=== PATIENT | female | born 1970 | race African-American/Black ===

== ENCOUNTER 2018-04-29 14:10 | Emergency (ER) | payer SELFPAY ==
[~2018-04-29] VITALS: Ht 177.8 cm; Wt 114.0 kg
[2018-04-29] MEDS ORDERED: IBUPROFEN 600MG TABLET PO ONE (14:30)
[2018-04-29 16:43] VITALS: BP 119/81
== END 2018-04-29 17:14 | disposition home or self-care (01) ==
LOC: ER 14:10
DX: M25.511 Pain in right shoulder (principal); M25.521 Pain in right elbow; R07.81 Pleurodynia; V49.9XXA Car occupant (driver) (passenger) injured in unspecified traffic accident, initial encounter; Y93.9 Activity, unspecified; Y92.9 Unspecified place or not applicable
CPT/HCPCS: 71101; 73030; 73080; 81025; 99284

== ENCOUNTER 2021-10-07 14:46 | Emergency (ER) | payer MEDICAID ==
[~2021-10-07] VITALS: Ht 177.8 cm; Wt 95.0 kg
[2021-10-07 14:53] VITALS: BP 137/89
[2021-10-07] MEDS ORDERED: NAPR-1176 MT (16:57)
== END 2021-10-07 17:19 | disposition home or self-care (01) ==
LOC: ER 14:46
DX: M25.512 Pain in left shoulder (principal); R20.0 Anesthesia of skin; I49.9 Cardiac arrhythmia, unspecified
CPT/HCPCS: 82962; 93005; 99284